=== PATIENT | male | born 1945 | race Caucasian/White ===

== ENCOUNTER 2016-05-07 11:57 | Emergency (ER) | payer OTHER ==
[2016-05-07 12:11] VITALS: RESP 16
--- NOTE | 2016-05-07 12:45 | EDPHY ---
H & P Stated Complaint: Dropped glass on R 4th toe 12 days ago;had lac,?infection Time Seen by Provider: 05/07/16 12:12 HPI/ROS: CHIEF COMPLAINT: Right 4th toe injury HISTORY OF PRESENT ILLNESS: 71-year-old immunocompetent male, no history of vascular insufficiency, peripheral vascular disease, diabetes, states that 12 days ago he dropped a glass on his right 4th toe sustaining a transverse laceration. He has been keeping the area soap but notes erythema to this area and was encouraged to seek medical attention. No lymphangitic streaking. He is able to bear weight. No paresthesia or sensory or motor deficit. No fever or chills. Tetanus is up-to-date. PRIMARY CARE PROVIDER: Jose REVIEW OF SYSTEMS: A ten point review of systems was performed and is negative with the exception of the items mentioned in the HPI PHYSICAL EXAM (Prior to examination, patient consented to physical exam, hands were washed and my usual and customary physical exam procedures followed) 1) GENERAL: Well-developed, well-nourished, alert and oriented. Appears to be in no acute distress. 2) HEAD: Normocephalic 3) HEENT: Pupils equal, round, reactive to light bilaterally. 4) LUNGS: Breathing comfortably. 5) MUSCULOSKELETAL: Right foot: There is a transverse laceration measuring 1.5 cm at the right 4th toe dorsal aspect at the PIP joint with associated erythema and induration. No lymphangitic streaking. No fetid odor. Swollen.DP PT pulses present and brisk. No crepitus. 6) SKIN: Erythema as described above 7) VASCULAR: DP,PT pulses and cap refill present and brisk DIFFERENTIAL DIAGNOSIS: in no particular order including but not limited to fracture, sprain, compartment syndrome Xray of the right toe interpreted by myself: no definitive acute osseous abnormality , no signs of osteomyelitis - Personal History Current Tetanus Diphtheria and Acellular Pertussis (TDAP): Yes - Medical/Surgical History Other PMH: neg by hx - Social History Smoking Status: Never smoked Constitutional: Initial Vital Signs Temperature (C) 36.7 C 05/07/16 12:08 Heart Rate 67 05/07/16 12:08 Respiratory Rate 16 05/07/16 12:08 Blood Pressure 182/98 H 05/07/16 12:08 O2 Sat (%) 95 05/07/16 12:08 Allergies/Adverse Reactions: No Known Allergies Allergy (Unverified 05/07/16 12:11) Home Medications: Medication Instructions Recorded Cephalexin [Keflex] 500 mg PO TID 10 Days 05/07/16 Medical Decision Making - Diagnostics Imagin:57 p.m.: X-ray of the right foot is negative per my interpretation, no radiopaque foreign body, no definitive acute osseous abnormality. ED Course/Re-evaluation: This patient was re-evaluated with serial exams most recently at 2:04 p.m.. I apologized for the delay in obtaining the x-ray. He has evidence of cellulitis without evidence of necrosis. Doubt osteomyelitis, doubt open fracture. He has no history of chronic skin infections. He is started on Keflex monotherapy. Recommend follow up with Podiatry. Usual customary wound precautions instructions provided. Recommend elevation. Departure - Departure Disposition: Home, Routine, Self-Care Clinical Impression: Infection of skin of toes Condition: Good Instructions: Cellulitis (ED) Additional Instructions: Return to the ER if you develop redness, swelling, discharge, warmth to the wound, red streaks going up your leg, or any other symptoms that concern you. Referrals: Anson Pinto DPM [Doctor of Podiatric Medicine] - 05/10/16 Prescriptions: Cephalexin [Keflex] 500 mg PO TID 10 Days
[2016-05-07 14:20] VITALS: BP 169/71; PULSE 58; TEMP 98.4; O2SAT 96
== END 2016-05-07 14:20 | disposition home or self-care (01) ==
DX: L08.9 Local infection of the skin and subcutaneous tissue, unspecified (principal)
CPT/HCPCS: L3260